=== PATIENT | male | born 1975 | race Caucasian/White ===

== ENCOUNTER → 2021-12-24 15:33 | Outpatient (CLI) | payer OTHER, SELFPAY ==
--- NOTE | ~2021-12-24 | CT_ITS ---
EXAMINATION: CT diagnostic chest w con DATE: 12/24/2021 15:57 INDICATION: Right lung mass reported in medial right lung base. Pleurisy. TECHNIQUE: Computed tomography (CT) of the chest was performed without intravenous contrast. Automate d exposure control and iterative reconstruction technique were employed. Exam dose: 429.15 mGy-cm to jason exam DLP. COMPARISON: None FINDINGS: No pulmonary infiltrate or consolidation or pulmonary mass lesion. Normal heart size. Normal caliber of the thoracic aorta. No hilar or mediastinal mass lesion or adeno shereen. No pericardial or pleural effusion. Normal morphology of the adrenal glands. Included upper abdominal structures are unremarkable. Mild degenerative spurring of the thoracic spine. No suspicious osteolytic or osteoblastic lesions. IMPRESSION: No significant abnormality. No pulmonary mass lesion. Reviewed, dictated and finalized at [facility]. Reviewed, dictated and finalized at [facility].
== END ==
PROVIDERS: Visit Provider Internal Medicine
DX: R91.1 Solitary pulmonary nodule (principal); R91.8 Other nonspecific abnormal finding of lung field
CPT/HCPCS: 71260; Q9967

== ENCOUNTER 2023-09-06 07:37 | Emergency (ER) | payer OTHER, SELFPAY ==
[2023-09-06 07:38] VITALS: BP 126/89; PULSE 97; RESP 16; TEMP 36.6; O2SAT 100
--- NOTE | 2023-09-06 07:52 | ED.GENADULT ---
HPI - General Adult General Chief complaint: Wound/Laceration Stated complaint: cat fell on pt Time Seen by Provider: 09/06/23 07:43 History of Present Illness HPI narrative: 47-year-old male presenting to the emergency department for evaluation of a cat scratch to his right face. Patient reports that his domestic cat was walking around at night and fell landing on his face causing a laceration. Patient reports the laceration was bleeding last night but bleeding is resolved this morning. Patient is unsure of his tetanus status. Patient denies allergies. Related Data Allergies Allergy/AdvReac Type Severity Reaction Status Date / Time No Known Allergies Allergy Verified 09/06/23 07:41 Review of Systems Review of Systems: All systems reviewed & are unremarkable except as noted in HPI and below PMFSH Past Medical History Medical History Abdominal pain Anxiety Diarrhea Impingement syndrome, shoulder Left shoulder pain Surgical History Surgical History H/O hernia repair Family History Family History Father Family history of lung cancer Social History Social History Smoking status: Never smoker Alcohol intake: current Alcohol use details: 2 a month Substance use: never Substance use type: does not use Lack of Transportation: No Lack of Food: Never True Current Housing: I Have Housing Concerned About Future Housing: No Difficulty Paying Gas/Electric Bills: No Difficulty Paying for Meds: No Currently Unemployed: No Education: Master's Degree or Higher Difficulty w/ Childcare or Family Care: No Living arrangements: with family Occupation/Education: occupation 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 HEAD: normocephalic, atraumatic. EYES: PERRLA/EOMI, conjunctivae clear. NOSE: Normal no drainage EARS:TMS clear with good light reflex. THROAT: Pharynx clear, no exudate. NECK: Supple. No adenopathy, no masses. RESPIRATORY: Airway patent, respirations nonlabored. Clear to auscultation bilaterally, no rales, rhonchi, wheezing. CARDIOVASCULAR: Regular rate and rhythm without murmurs rubs or gallops. ABDOMINAL: Soft, nontender, nondistended, normal bowel sounds MUSCULOSKELETAL: Moves all extremities. Strength/ROM intact, No edema, No calf tenderness. NEURO: Alert. Cranial nerves II through XII intact. Good gait. Good coordination SKIN: healing laceration, not needing requiring repair from the right side of the nose across right face. Course Course Emergency Course: 47-year-old male presenting to the emergency department for evaluation of a cat scratch to his face. Patient's tetanus was updated patient was started on Augmentin. Patient was encouraged to have close follow-up with his primary care physician Vital Signs Vital signs: Vital Signs Temperature 97.9 F 09/06/23 07:38 Pulse Rate 97 09/06/23 07:38 Respiratory Rate 16 09/06/23 07:38 Blood Pressure 126/89 09/06/23 07:38 Pulse Oximetry 100 09/06/23 07:38 Temperature 97.9 F 09/06/23 07:38 Pulse Rate 97 09/06/23 07:38 Respiratory Rate 16 09/06/23 07:38 Blood Pressure 126/89 09/06/23 07:38 Pulse Oximetry 100 09/06/23 07:38 Medical Decision Making Vital Signs Vital Signs: Vital Signs Temperature 97.9 F 09/06/23 07:38 Pulse Rate 97 09/06/23 07:38 Respiratory Rate 16 09/06/23 07:38 Blood Pressure 126/89 09/06/23 07:38 Pulse Oximetry 100 09/06/23 07:38 Temperature 97.9 F 09/06/23 07:38 Pulse Rate 97 09/06/23 07:38 Respiratory Rate 16 09/06/23 07:38 Blood P
[2023-09-06] MEDS: AMOXICILLIN/CLAVULANATE K 875-125 MG TAB 1 TABLET PO (07:59)
[2023-09-06] MEDS: TETANUS,DIPHTHERIA,AC PERTUSSIS ADULT (0.5 ML) BOOSTRIX IM (07:59)
== END 2023-09-06 08:05 | disposition home or self-care (01) ==
PROVIDERS: Emergency Provider Emergency Medicine; PCP Family Medicine
DX: S00.81XA Abrasion of other part of head, initial encounter (principal); Z23 Encounter for immunization; W55.03XA Scratched by cat, initial encounter
CPT/HCPCS: 90471; 90715; 99283; A9270

== ENCOUNTER → 2023-09-29 08:00 | Outpatient (CLI) | payer OTHER, SELFPAY ==
--- NOTE | ~2023-09-29 | MR_ITS ---
MRI of the left shoulder Technique: Axial proton-density fat-sat images, coronal proton density fat-sat and T2 fat-sat images, and sagittal T1-weighted and T2 fat-sat images were acquired. Clinical History: Pain Findings: There is no significant degenerative change at the AC joint. Coracoclavicular, coracoacromi al, and coracohumeral ligaments are intact. Supraspinatus and infraspinatus tendons are intact, with minimal tendinosis. Subscapularis tendon is intact. Tendon of the long head of the biceps is intact. No labral tear identified. Inferior humeral ligament is intact. No degenerative change or effusion of the glenohumeral joint. No fluid distention of the subacromial/subdeltoid bursa. No muscle atrophy or edema seen. Impression: Essentially unremarkable exam. Reviewed, dictated and finalized at [facility]. 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
== END ==
PROVIDERS: PCP Family Medicine; Visit Provider Family Medicine
DX: M25.512 Pain in left shoulder (principal)
CPT/HCPCS: 73221

== ENCOUNTER 2024-09-12 07:56 | Day surgery (SDC) | payer OTHER, SELFPAY ==
[2024-06-18 08:21] VITALS: BMI 27.3
[2024-08-27 12:01] VITALS: BMI 25.6
--- NOTE | 2024-09-11 11:43 | WPDANESEPPF ---
Anes - Initial Pre Proc Eval Procedure: Operation Date: 09/12/24 10:15 Proposed Procedures p Screening Colonoscopy - Mitchell Crane MD Date/Time: 09/11/24 11:43 Surgeon: Mitchell Crane MD Pre Op Diagnosis: Neoplasm Screening Patient Data Age: 48 Gender: M Height: 1.88 m Weight: 90.5 kg Allergies Allergy/AdvReac Type Severity Reaction Status Date / Time No Known Allergies Allergy Verified 08/27/24 11:56 Home Medications Medication Instructions Recorded Confirmed Type rosuvastatin 5 mg tablet 5 mg PO QHS #90 tabs 06/18/24 08/27/24 Rx citalopram 40 mg tablet 40 mg PO DAILY #90 tabs 07/24/24 08/27/24 Rx Patient hx anesthesia problems: none Family hx anesthesia problems: none Results Review: All pre-operative results and documents have been reviewed as part of the pre-operative evaluation. [facility] Past Medical History Medical History (Updated 09/11/24 @ 11:43 by Lobo Hammond DO) Abdominal pain Anxiety Asthma Diarrhea Hypercholesteremia Impingement syndrome, shoulder Left shoulder pain Surgical History Surgical History H/O hernia repair Family History Family History Father Family history of lung cancer Social History Social History (Updated 07/23/24 @ 13:15 by Ishmael Ling) Social History: 07/23/24 very confident with medical forms Smoking status: Never smoker Alcohol intake: current Alcohol use details: 2 a month Substance use: never Substance use type: does not use Do You Feel Safe in your Home?: Yes Lack of Transportation: No Lack of Food: Never True Current Housing: I Have Housing Concerned About Future Housing: No Difficulty Paying Gas/Electric Bills: No Difficulty Paying for Meds: No Currently Unemployed: No Education: Bachelor's Degree Difficulty w/ Childcare or Family Care: No Living arrangements: with family Occupation/Education: occupation 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 Informed Consent: The patient's anesthetic plan and its attendant risks and benefits were discussed with the patient/family/POA. Questions were solicited and answers provided to the satisfaction of the patient/family/POA.
[2024-09-12 09:12] VITALS: BP 125/93; PULSE 81; RESP 18; TEMP 36.4; O2SAT 99
[2024-09-12] MEDS: LACTATED RINGERS 1,000 ML 150 ML IV CONT (09:14)
--- NOTE | 2024-09-12 09:40 | P.HP_ITS ---
History of Present Illness History of Present Illness Consent: Risks, benefits, and alternatives have been discussed and questions answered. Patient agrees to proceed with procedure. Chief complaint: Neoplasm Screening Narrative: Ben Jose is a 48 year old male presents for screening colonoscopy. Patient's current weight appetite and bowel movements are normal. Patient denies abdominal pain. He has had no bleeding. Family history is noncontributory. Review of Systems Review of Systems: All systems reviewed & are unremarkable except as noted in HPI and below PMFSH Past Medical History Medical History (Updated 09/12/24 @ 09:41 by Mitchell Crane MD) Abdominal pain Anxiety Asthma Diarrhea Hypercholesteremia Impingement syndrome, shoulder Left shoulder pain Surgical History Surgical History H/O hernia repair Family History Family History Father Family history of lung cancer Social History Social History (Updated 07/23/24 @ 13:15 by Ishmael Ling) Social History: 07/23/24 very confident with medical forms Smoking status: Never smoker Alcohol intake: current Alcohol use details: 2 a month Substance use: never Substance use type: does not use Do You Feel Safe in your Home?: Yes Lack of Transportation: No Lack of Food: Never True Current Housing: I Have Housing Concerned About Future Housing: No Difficulty Paying Gas/Electric Bills: No Difficulty Paying for Meds: No Currently Unemployed: No Education: Bachelor's Degree Difficulty w/ Childcare or Family Care: No Living arrangements: with family Occupation/Education: occupation 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 by 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): Male Spiritual care concerns: No Meds Home Medications and Allergies Home Medications Medication Instructions Recorded Confirmed Type rosuvastatin 5 mg tablet 5 mg PO QHS #90 tabs 06/18/24 08/27/24 Rx citalopram 40 mg tablet 40 mg PO DAILY #90 tabs 07/24/24 08/27/24 Rx Allergies Allergy/AdvReac Type Severity Reaction Status Date / Time No Known Allergies Allergy Verified 08/27/24 11:56 Vital Signs Vital Signs - 24 hr 09/12/24 09:12 Temperature 97.6 F Pulse Rate 81 Respiratory Rate 18 Blood Pressure 125/93 H Pulse Oximetry 99 Oxygen Delivery Room Air Exam Narrative: Physical exam reveals patient to be alert. Signs stable. HEENT exam is unremarkable. Patient is anicteric. Lungs are clear to auscultation and percussion. Heart is without murmur or extra sounds. Abdomen bowel sounds are present soft nontender with no organomegaly. Digital external rectal exam normal. Assessment and Plan Assessment and plan (1) Screen for colon cancer: Code(s): Z12.11 - Encounter for screening for malignant neoplasm of colon Status: Acute Assessment and Plan: Patient presents today for neoplasia screening colon this could be. He appears to be at average risk for colon polyps. Further recommendations may be given after endoscopy.
[2024-09-12 10:48] VITALS: BP 104/67; PULSE 73; RESP 18; O2SAT 98
[2024-09-12 10:58] VITALS: BP 110/69; PULSE 72; RESP 16; O2SAT 99
[2024-09-12 11:08] VITALS: BP 112/77; PULSE 72; RESP 15; O2SAT 100
--- NOTE | 2024-09-12 13:17 | WPDANESPN ---
Anes - Prog Note Post-Op Date/Time: 09/12/24 13:17 Cardiovascular status: normal Respiratory status: normal Airway patency: baseline Mental status: baseline Post-Op hydration status: normal Vital Signs: Last Vital Signs Temp 36.4 C 09/12/24 09:12 Pulse 72 09/12/24 11:08 Resp 15 09/12/24 11:08 BP 112/77 09/12/24 11:08 Pulse Ox 100 09/12/24 11:08 O2 Del Method Room Air 09/12/24 11:08 Pain Score (VAS): 0 I/O: Intake & Output 09/11/24 09/12/24 09/12/24 23:59 07:59 15:59 Intake Total 700 Balance 700 Post-procedural complaints: none Patient Feedback: Patient satisfied with anesthetic care. Other Findings: Patient vital signs back to baseline. Patient denies nausea and vomiting. Patient's pain under control. Patient OK for discharge.
== END 2024-09-12 11:24 | disposition home or self-care (01) ==
PROVIDERS: Visit Provider Internal Medicine Gastroenterology
PROC: 0DJD8ZZ Inspection of Lower Intestinal Tract, Via Natural or Artificial Opening Endoscopic (ICD-10-PCS; CPT 45378; principal; 2024-09-12 10:15)
DX: Z12.11 Encounter for screening for malignant neoplasm of colon (principal); K64.8 Other hemorrhoids
CPT/HCPCS: 45378

== ENCOUNTER 2025-07-21 22:37 | Emergency (ER) | payer OTHER, SELFPAY ==
--- NOTE | ~2025-07-21 | CT_ITS ---
CT HEAD NON-CONTRAST Clinical History: headache x 4 days Comparison: None Technique: Unenhanced axial images skull base to vertex Coronal, sagittal reformats CT images acquired with automatic exposure control for dose reduction DLP: 757 mGy-cm Findings: Sulci, ventricles: Unremarkable. No intracerebral hemorrhage. No evidence acute territorial infarct. No mass effect, midline shift. Bony calvarium intact. Visualized paranasal sinuses: Clear. Mastoid air cells: Clear. IMPRESSION: 1. No acute intracranial findings. Reviewed, dictated and finalized at [facility].
[2025-07-21 23:02] VITALS: BP 166/92; PULSE 91; RESP 20; TEMP 36.9; O2SAT 99
[2025-07-22] VITALS (23 sets, daily range): BP systolic 113–161; BP diastolic 84–108; O2SAT 94–100
[2025-07-22] MEDS: PROCHLORPERAZINE EDISYLATE 10 MG/2 ML VIAL IM (05:05)
[2025-07-22] MEDS: diphenhydrAMINE HCl CAP 25 MG CAPSULE 50 MG PO (05:05)
[2025-07-22] MEDS: ACETAMINOPHEN 500 MG TABLET 1000 MG PO (05:05)
[2025-07-22] MEDS: KETOROLAC 30 MG/ML VIAL (*BKC) IM (05:05)
--- NOTE | 2025-07-22 06:31 | ED.GENADULT ---
HPI - General Adult General Chief complaint: Headache Stated complaint: high blood pressure Time Seen by Provider: 07/22/25 04:16 History of Present Illness HPI narrative: This is a 49-year-old male with history of migraines presenting ED with a headache and concerns about his blood pressure. Patient says for last 3 days he has had a throbbing headache on the top his head. Associated with some light sensitivity. No fevers or neck stiffness. No loss of consciousness or confusion. Patient says that this is his typical migraine and he has these quite frequently. He then checked his blood pressure at home was elevated at 160/100 which caused his sent him to the emergency department. He does not have any chest pain difficulty breathing abdominal pain. Weakness to any extremity. Related Data Allergies Allergy/AdvReac Type Severity Reaction Status Date / Time No Known Allergies Allergy Verified 07/21/25 23:05 [facility] Past Medical History Medical History (Updated 07/22/25 @ 06:34 by Julian Ravi MD) Impingement syndrome, shoulder Left shoulder pain Anxiety Hypercholesteremia Asthma Abdominal pain Diarrhea Surgical History Surgical History H/O hernia repair Family History Family History Father Family history of lung cancer Social History Social History (Updated 07/23/24 @ 13:15 by Ishmael Ling) Social History: 07/23/24 very confident with medical forms Smoking status: Never smoker Alcohol intake: current Alcohol use details: 2 a month Substance use: never Substance use type: does not use Do You Feel Safe in your Home?: Yes Lack of Transportation: No Lack of Food: Never True Current Housing: I Have Housing Concerned About Future Housing: No Difficulty Paying Gas/Electric Bills: No Difficulty Paying for Meds: No Currently Unemployed: No Education: Bachelor's Degree Difficulty w/ Childcare or Family Care: No Living arrangements: with family Occupation/Education: occupation 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 Head: atraumatic. EYES: EOMI, PERRLA NOSE: Atraumatic NECK: Trachea midline RESPIRATORY: No increased rate of breathing CARDIOVASCULAR: RRR, ABDOMINAL: Non-distended MUSCULOSKELETAl: No obvious deformities NEURO: Alert. Cranial nerves 2-12 grossly intact. Sensation light touch, motor function cerebellar function intact for 4 extremities. Gait exam was normal. SKIN:: Warm, dry. Normal color PSYCHIATRIC: Normal affect Course Vital Signs Vital signs: Vital Signs Temperature 98.4 F 07/21/25 23:02 Pulse Rate 91 07/21/25 23:02 Respiratory Rate 20 07/21/25 23:02 Blood Pressure 166/92 H 07/21/25 23:02 Pulse Oximetry 99 07/21/25 23:02 Oxygen Delivery Room Air 07/21/25 23:02 Temperature 98.4 F 07/21/25 23:02 Pulse Rate 91 07/21/25 23:02 Respiratory Rate 20 07/21/25 23:02 Blood Pressure 113/84 07/22/25 06:16 Pulse Oximetry 98 07/22/25 06:16 Oxygen Delivery Room Air 07/21/25 23:02 Medical Decision Making MDM Narrative Medical decision making narrative: -Course: 49-year-old male history of migraines presenting with a migraine and elevated blood pressure. CT brain was negative for acute intracranial process. We treated his migraine and his blood pressure return to normal. Patient was updated on his results and discharged follow-up with primary care physician. -DDX includes but is not limited to: Migraine, tension headache, intracranial hemorrhage Vital Signs Vital Signs: Vital Signs Temperature 98.4 F 07/21/25 23:02 Pulse Rate 91 07/21/25 23:02 Respiratory Rate 20 07/21/25 23:02 Blood Pressure 166/92 H 07/21/25 23:02 Pulse Oximetry 99 07/21/25 23:02 Oxygen Delivery Room Air 07/21/25 23:02 Temperature 98.4 F 07/21/25 23:02 Pulse Rate 91 07/21/25 23:02 Respiratory Rate 20 07/21/25 23:02 Blood Pressure 113/84 07/22/25 06:16 Pulse Oximetry 98 07/22/25 06:16 Oxygen Delivery Room Air 07/21/25 23:02 Discharge Plan Discharge Clinical Impression: Migraine Patient Disposition: Home Condition: Stable Instructions: Antibiotic Form, Acute Headache (ED) Additional Instructions: You were seen emergency department for headache. Your blood pressure resolved once we treated your headache. Please follow-up with your primary care physician if you have any other concerns about her blood pressure. Please return to ED for develop any new or worsening symptoms. Patient Language: Latvian Prescriptions: No Action rosuvastatin 5 mg tablet 5 mg PO QHS Qty: 90 1RF citalopram 40 mg tablet 40 mg PO DAILY Qty: 90 1RF Follow-up/Referrals: Marcus,Tess Cleaning MD [Primary Care Provider, Unknown]
== END 2025-07-22 06:43 | disposition home or self-care (01) ==
PROVIDERS: Emergency Provider Emergency Medicine; PCP Student in an Organized Health Care Education/Training Program
DX: G43.909 Migraine, unspecified, not intractable, without status migrainosus (principal); E78.00 Pure hypercholesterolemia, unspecified; J45.909 Unspecified asthma, uncomplicated; F41.9 Anxiety disorder, unspecified; Z79.899 Other long term (current) drug therapy
CPT/HCPCS: 70450; 96372; 99284; A9270; J0780; J1885